=== PATIENT | female | born 1975 | race Caucasian/White ===

== ENCOUNTER 2020-07-29 11:22 | Emergency (ER) | payer OTHER ==
--- NOTE | 2020-07-29 11:38 | ED Physician Documentation ---
PD HPI URI - Stated complaint Stated Complaint: COUGH/BODY/ACHES/NAUSEA - Chief complaint Chief Complaint: Resp - History obtained from History obtained from: Patient - History of Present Illness Timing - onset: How many days ago (2-3) Timing duration: Days (2-3) Timing details: Gradual onset, Still present (onset of cough and wheezing for few days, worsening. Her with URI symptoms and tested for COVID yesterday, results pending. 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 Patient has history of COPD but has significant tachyphylaxis to albuterol and Xopenex.) Associated symptoms: Chills, Nasal congestion, Dry cough, Dyspnea. No: Fever, Productive cough, Hemoptysis, Chest pain, Bilateral edema Contributing factors: Sick contact ( with URI symptoms), COPD / asthma. No: Travel, Immunocompromised Improves by: No: MDI/nebulizer (her inhaled steroids; does not have rescue inhaler.) Worsened by: Activity, Breathing Similar symptoms before: Has not had sx before Recently seen: Not recently seen Review of Systems Constitutional: denies: Fever, Chills Nose: reports: Rhinorrhea / runny nose. denies: Congestion Throat: denies: Sore throat Cardiac: denies: Chest pain / pressure Respiratory: reports: Dyspnea, Cough, Wheezing. denies: Hemoptysis GI: denies: Abdominal Pain, Nausea, Vomiting, Diarrhea Skin: denies: Rash, Lesions Neurologic: denies: Altered mental status, Headache PD PAST MEDICAL HISTORY - Past Medical History Cardiovascular: None Respiratory: Asthma, COPD Neuro: None Endocrine/Autoimmune: None - Present Medications Home Medications: Ambulatory Orders Medication Instructions Recorded Confirmed Benzonatate [Tessalon] 100 mg PO TID PRN #20 capsule 07/29/20 Doxycycline Monohydrate 150 mg PO BID #14 capsule 07/29/20 Ipratropium [Atrovent] 2 puffs INH Q6H #1 inhaler 07/29/20 dexAMETHasone [Decadron] 4 mg PO DAILY #7 tablet 07/29/20 - Allergies Allergies/Adverse Reactions: Allergies Allergy/AdvReac Type Severity Reaction Status Date / Time albuterol Allergy Respiratory Verified 07/29/20 11:35 latex Allergy Anaphylaxis Verified 07/29/20 11:35 Penicillins Allergy Anaphylaxis Verified 07/29/20 11:35 Sulfa (Sulfonamide Allergy Hives Verified 07/29/20 11:35 Antibiotics) aspirin AdvReac Unknown Verified 07/29/20 11:35 PD ED PE NORMAL - Vitals Vital signs reviewed: Yes - General General: Alert and oriented X 3, Well developed/nourished - HEENT HEENT: Ears normal, Moist mucous membranes, Pharynx benign - Neck Neck: Supple, no meningeal sign, No adenopathy - Cardiac Cardiac: RRR, No murmur - Respiratory Respiratory: No: Clear bilaterally (no coarse sounds, but having mid to end expiratory wheezing diffusely. ) - Abdomen Abdomen: Soft, Non tender - Back Back: No CVA TTP - Derm Derm: Normal color, Warm and dry - Extremities Extremities: No tenderness to palpate, Normal ROM s pain, No edema, No calf tenderness / cord Results - Vitals Vitals: Vital Signs - 24 hr 07/29/20 07/29/20 07/29/20 11:32 11:50 12:59 Temperature 36.9 C Heart Rate 84 80 76 Respiratory 18 16 16 Rate Blood Pressure 135/90 H 120/71 O2 Saturation 99 96 07/29/20 07/29/20 13:20 13:51 Temperature Heart Rate 76 66 Respiratory 16 20 Rate Blood Pressure 116/67 O2 Saturation 96 Oxygen O2 Source Room air - Labs Labs: Laboratory Tests 07/29/20 12:13 Nasal Adenovirus (PCR) NOT DETECTED Nasal B. parapertussis DNA (PCR) NOT DETECTED Nasal Coronavir 229E PCR NOT DETECTED Nasal Coronavir HKU1 PCR NOT DETECTED Nasal Coronavir NL63 PCR NOT DETECTED Nasal Coronavir OC43 PCR NOT DETECTED Nasal Enterovir/Rhinovir PCR DETECTED A Nasal Influenza B PCR NOT DETECTED Nasal Influenza A PCR NOT DETECTED Nasal Parainfluen 1 PCR NOT DETECTED Nasal Parainfluen 2 PCR NOT DETECTED Nasal Parainfluen 3 PCR NOT DETECTED Nasal Parainfluen 4 PCR NOT DETECTED Nasal RSV (PCR) NOT DETECTED Nasal B.pertussis DNA PCR NOT DETECTED Nasal C.pneumoniae (PCR) NOT DETECTED West Human Metapneumo PCR NOT DETECTED Nasal M.pneumoniae (PCR) NOT DETECTED Nasal SARS-CoV-2 (PCR) NOT DETECTED - Rads (name of study) chest xray Radiology: Prelim report reviewed (no infiltrates), See rad report PD MEDICAL DECISION MAKING - ED course Complexity details: re-evaluated patient (felt reasonably better and has less wheezing with Atrovent neb. ), considered differential (tested for Resp panel and positive for rhinovirus, negative for Covid. ), d/w patient Departure - Departure Disposition: 01 Home, Self Care Clinical Impression: Asthma exacerbation in COPD Upper respiratory infection Qualifiers: URI type: unspecified viral URI Qualified Code(s): J06.9 - Acute upper respiratory infection, unspecified Condition: Stable Record reviewed to determine appropriate education?: Yes Instructions: ED URI Viral W Wheezing Follow-Up: [facility] [Provider Group] Prescriptions: Ipratropium [Atrovent] 2 puffs INH Q6H #1 inhaler dexAMETHasone [Decadron] 4 mg PO DAILY #7 tablet Doxycycline Monohydrate 150 mg PO BID #14 capsule Benzonatate [Tessalon] 100 mg PO TID PRN #20 capsule PRN Reason: Cough Comments: Your nasal swab test showed a fairly common type of virus for upper respiratory infection. It was negative for coronavirus. The test is likely not 100% accurate but does show other viral cause at this time. Given the flareup of your COPD/asthma, you can add Atrovent inhaler 2 puffs 4 times a day. Also Decadron steroid daily for a week and benzonatate as needed for cough. Even though the primary cause of your symptoms is viral, there is literature to suggest adding antibiotic may be useful as well given your COPD. Recheck if not improving well over the next few days and return if worse. Discharge Date/Time: 07/29/20 14:02
[2020-07-29] MEDS ORDERED: DEXAMETHASONE 10 MG/ML VIAL PO STA (12:01)
[2020-07-29] MEDS ORDERED: CHERRY SYRUP 10 ML UDC PO ONE (12:01)
[2020-07-29] MEDS ORDERED: BENZONATATE 100 MG CAPSULE PO STA (12:01)
[2020-07-29] MEDS ORDERED: IPRATROPIUM 0.2 MG/ML NEB INH STA ×2 (12:02→13:06)
--- NOTE | 2020-07-29 12:26 | XRAY Report ---
PROCEDURE: Chest 1 View X-Ray INDICATIONS: cough and dyspnea TECHNIQUE: One view of the chest was acquired. COMPARISON: None FINDINGS: Surgical changes and devices: None. Lungs and pleura: No pleural effusions or pneumothorax. Lungs are clear. Mediastinum: Mediastinal contours appear normal. Heart size is normal. Bones and chest wall: No suspicious bony lesions. Overlying soft tissues appear unremarkable. IMPRESSION: No acute cardiopulmonary disease process. Reviewed by: Yelena Camp MD, PhD on 07/29/2020 12:25 PM [facility] Approved by: Yelena Camp MD, PhD on 07/29/2020 12:25 PM [facility] Station ID: [id number]
[2020-07-29] MEDS ORDERED: DOXYCYCLINE 100 MG TABLET PO STA (13:06)
[2020-07-29 13:16] LABS: C. PNEUMONIAE- RESP PCR PANEL NOT DETECTED
[2020-07-29 13:52] VITALS: BP 116/67
== END 2020-07-29 14:02 | disposition home or self-care (01) ==
LOC: ED 11:22
DX: J44.1 Chronic obstructive pulmonary disease with (acute) exacerbation (principal); J45.901 Unspecified asthma with (acute) exacerbation; J06.9 Acute upper respiratory infection, unspecified; B97.89 Other viral agents as the cause of diseases classified elsewhere; Z20.828 Contact with and (suspected) exposure to other viral communicable diseases
CPT/HCPCS: 0202U; 71045; 94640; 94664; 99284; A9270

== ENCOUNTER 2020-10-04 12:49 | Outpatient (CLI) | payer OTHER ==
[2020-10-04 13:34] VITALS: BP 101/67
--- NOTE | 2020-10-04 13:34 | SLEEP CARE CONSULTATION ---
Information from patient questionnaire entered by Gal Dos Santos. I have reviewed and concur with the information entered by Gal Dos Santos. This document represents the service I personally performed and the decisions made by me, Kayleen Llanes ARNP. History of Present Illness Service Date and Time: 10/04/2020 1249 Reason for Visit: New patient Chief Complaint: reports: Unrefreshed sleep, Snoring, Excessive daytime sleepiness, Fatigue, Frequent awakenings at night. denies: Observed pauses in breathing Date of Onset: Since 2016 Usual bedtime: 10 PM Time it takes to fall asleep: 1 hr to 2 hr Snores at night: Yes (My says I do) Observed to quit breathing while asleep: No Sleeps alone due to snoring: No Number of times waking at night: Several Reasons for waking at night: reports: Bathroom. denies: Choking, Snoring, Gasping for air Toss, Turn, or Twitch while sleeping: Yes Recalls having dreams: Yes Usually gets out of bed at: 7:45 AM Feels refreshed in the morning: No Morning headache: Yes (2 times a week, last couple hours) Sleepy or fatigued during the day: Yes Ever fallen asleep while driving: No Takes day naps: No Dreams during day naps: No Prior sleep studies: No Additional HPI information: I had the pleasure of seeing CAROLINE BAKER today regarding the possibility of her having a sleep disorder. Her current complaints are snoring, frequent night awakenings, unrefreshed sleep, fatigued all day and not sleeping well. She will wake up after going to bed and will not be able to get back to sleep for a couple hours. She does remember dreams in color but doesn't feel she gets to real deep sleep. She used to be a heavy sleeper but now wakes up for any noise. 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 She does have medication to sleep, trazadone and Lunesta, but they are not helping her stay asleep. She states she gets very stressed when her gets deployed and makes her sleep symptoms worse. She states that when she gets stressed her anxiety "goes through the roof" and she has really bad sleep paralysis that is very scary. She does have PTSD, OCD and is seeing a psychiatrist for her issues. She was referred here to rule out a sleep disorder contributing to her symptoms of sleep difficulties. - Parasomnia Symptoms Ever been unable to move upon waking from sleep: Yes (started about 2017 during deployment) Walks in sleep: Yes Talks in sleep: Yes Ever acted out dreams in sleep: Yes (has hit when asleep, hx of PTSD) Ever felt weak in the knees when startled or emotional: Yes (has fallen to the ground before) Bothered by creepy, crawly, restless sensations in legs: Yes (lasts all day) Problems with memory or concentration: Yes (depends on the day, moments she can't remember things) Subjective Initial Stratton Sleepiness Scale score: 7 (in 2020) Past Medical History Past Medical History: reports: Claustrophobia, Arthritis, Anxiety, Asthma, Depression, Mood disorder (PTSD, OCD), GERD, Other (COPD). 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 Patient is and lives in [place]. Have you smoked in the past 12 months: Yes (VAP) Years of smokin Alcohol use: Yes Alcohol amount and frequency: 4 a month Caffeine use: Yes Caffeine amount and frequency: All day; 2 cups coffee then sweet tea till 8pm and then water Family History Family history of sleep disordered breathing: No Allergies and Home Medications Drug allergies reviewed: Yes (albuterol, latex, penicillin, sulfa, aspirin) Home medication list reviewed: Yes Allergy and home medication list: Lamotrigine 200 mg Esopictone 3mg Pantaprazole EC 40 mg Trazodone 50 mg Symbicort 160/4.5 mg Review of Systems Weight gain over past 5 years: 100 Weight loss over past 5 years: 110 Cardiovascular: reports: palpitations, irregular heart rate or pulse Respiratory: reports: shortness of breath, wheeze Gastrointestinal: reports: heartburn, abdominal pain Neurological: reports: headaches Psychiatric: reports: anxiety, depression, mood disorder, claustrophobia Ear/Nose/Throat: reports: nasal congestion, sinus problems, dry mouth/throat, wisdom teeth removed. denies: tonsillectomy Endocrine: reports: sluggishness (tired), too hot or cold, excessive thirst Musculoskeletal: reports: joint pain, neck pain, back pain, joint swelling Immunologic: reports: sneezing (runny nose), itching, allergies to food or environment Physical Exam Blood Pressure: 101/67 Cuff size: wrist Heart Rate: 80 O2 Saturation: 98 Height: 5 ft 6 in Weight: 135 lb Body Mass Index: 21.7 BMI Classification: Healthy weight Nostrils: patent to airflow Turbinates: swollen Mouth and throat: narrow oropharynx Soft palate: long Hard palate: normal Uvula: normal Uvula visualization: 100% Mallampati Class I Tongue: normal in size Tonsils: 2+ Chin and jaw: normal size and position Neck: normal w/o lymphadenopathy or thyromegaly Heart: regular rate and rhythm, murmur Lungs: clear bilaterally Impression and Plan 1. Suspected Obstructive Sleep Apnea-Hypopnea Syndrome, as suggested by a history of loud and irregular snoring, morning headache, frequent awakening during the night, unrefreshed sleep, cognitive impairment, and excessive daytime sleepiness. I reviewed with the patient that a narrow oropharynx and obesity are common predisposing factors for obstructive sleep apnea-hypopnea syndrome. I recommend proceeding to polysomnography to confirm the diagnosis and to assess severity. If the patient has significant sleep disordered breathing, a manual CPAP titration study will also be performed to find the optimal treatment pressure. I informed the patient of what the sleep studies involve and after some discussion, obtained agreement to proceed. The pathophysiology of obstructive sleep apnea-hypopnea syndrome was discussed with the patient and health risks of cardiovascular and cerebrovascular disease if not treated. AASM brochure for obstructive sleep apnea-hypopnea syndrome given and reviewed. 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 Patient agreed to plan. * Schedule polysomnography +- manual CPAP titration study and return in 1-2 weeks after the study to discuss result and initiate therapy. * Avoid long distance driving or driving when feeling sleepy. * Avoid alcohol, sedative and muscle relaxant around bedtime. * Review instructions provided by trained office staff on how to prepare for the sleep study. * Return for follow-up after sleep study completed. Visit Type: In Office Time Spent with Patient (minutes): 36 Provider Statement: I spent 100% of the Face to Face Visit with the patient with greater than 50% spent counseling the patient and coordination of care.
== END 2020-10-04 12:50 | disposition home or self-care (01) ==
LOC: SC 12:49
PROVIDERS: ATTEND Nurse Practitioner Family
DX: R06.83 Snoring (principal); G47.8 Other sleep disorders; G47.10 Hypersomnia, unspecified; R53.83 Other fatigue; R51.9 Headache, unspecified; F17.290 Nicotine dependence, other tobacco product, uncomplicated
CPT/HCPCS: 99203; 99212

== ENCOUNTER 2020-10-21 10:02 | Outpatient (CLI) | payer OTHER | END 2020-10-21 10:03 | disposition home or self-care (01) | LOC: SC 10:02 | PROVIDERS: ATTEND Nurse Practitioner Family | DX: R06.83 Snoring (principal); R09.02 Hypoxemia | CPT/HCPCS: 95806 ==

== ENCOUNTER 2020-10-26 14:01 | Outpatient (CLI) | payer OTHER ==
--- NOTE | 2020-10-26 14:44 | SLEEP CARE CONSULTATION ---
Information from patient questionnaire entered by Gal Dos Santos. I have reviewed and concur with the information entered by Gla Dos Santos. This document represents the service I personally performed and the decisions made by , Kayleen Llanes ARNP. History of Present Illness Service Date and Time: 10/26/2020 1401 Initial Adrian Sleepiness Scale score: 7 (in 2020) Current Adrian Sleepiness Scale score: 5 Additional HPI information: CAROLINE BAKER returns for follow up and results of the recently performed home sleep study. The patient was informed of the following findings: no significant sleep disordered breathing with an average AHI of 1.2 and marty oxygen saturation of 87%. She had mild hypoxemia with O2 saturations below 90% for 63.8 minutes total during study. I explained the pathophysiology behind obstructive sleep apnea. Patient does not have sleep apnea and was advised how weight gain could increase the risk of developing sleep apnea in the future. Patient has light snoring. Snoring can be reduced by weight loss. Weight loss is best achieved with diet consult. Patient instructed to contact PCP for referral. Snoring can also be treated with an oral appliance from a dentist. Advised to check insurance coverage. In addition, an ENT evaluation can be do to see if other treatment is indicated. Patient counseled not drink alcohol less than 4 hours before bedtime as it can increase snoring and apnea. Patient was cautioned about risks of drowsy driving until sleepiness symptoms resolve. Sleep Study - Results Type of Sleep Study: Home sleep study Prior sleep studies: No Polysomnography/Home Sleep Study results: Physician Impression: The quality of the study is good. The length of the study is adequate (> 240 minutes). Please also see the tabulated and graphic data. 1. No significant sleep disordered breathing, with an AHI of 1.2/hr and marty SaO2 of 87%. During the study, the patient had 9 apneas (9 obstructive, 0 central, 0 mixed) and 0 hypopneas. The longest episode lasted 22.5 seconds. The rare respiratory events occurred more frequently during supine sleep (supine AHI was 2.0 and non-supine, 0.82). 2. Hypoxemia (ICD-10 R09.02), mild, with the lowest oxygen saturation of 87 % and 63.8 minutes with SaO2 under 90%. Baseline oxygen saturation was normal (Average oxygen saturation was 92%). Allergies and Home Medications Home medication list reviewed: Yes (no changes) Review of Systems Review of systems same as previous: Yes (no changes) Physical Exam Heart Rate: 68 O2 Saturation: 99 Height: 5 ft 6 in Weight: 135 lb Body Mass Index: 21.7 BMI Classification: Healthy weight Impression and Plan 1. Snoring but no significant sleep disordered breathing. Patient advised that often weight loss will reduce snoring as well as apnea risk. An oral appliance can also be used for snoring. This would require a dental consultation. Patient cautioned not to use other online appliances as can cause bite issues. Patient is advised to check if insurance will cover. An ENT consult can also be helpful to determine if any other treatment is an option. 2. Hypoxemia, mild, with the lowest oxygen saturation of 87 % and 63.8 minutes with SaO2 under 90%. Her baseline oxygen saturation was normal with an average o xygen saturation at 92%. Patient advised to follow up with her PCP for mild hypoxemia. She does have a history of asthma and COPD. * Follow up with PCP for mild hypoxemia * Avoid alcohol consumption near bedtime * The patient is cautioned about driving until sleepiness is completely resolved. * Return as needed. Visit Type: In Office Time Spent with Patient (minutes): 12 Provider Statement: I spent 100% of the Face to Face Visit with the patient with greater than 50% spent counseling the patient and coordination of care.
== END 2020-10-26 14:02 | disposition home or self-care (01) ==
LOC: SC 14:01
PROVIDERS: ATTEND Nurse Practitioner Family
DX: R06.83 Snoring (principal); R09.02 Hypoxemia
CPT/HCPCS: 99212